=== PATIENT | female | born 1985 | race Asian ===

== ENCOUNTER 2020-05-27 05:20 | Inpatient (IN) | payer BC, SELFPAY ==
[~2020-05-27] VITALS: Ht 157.5 cm; Wt 60.8 kg
[2020-05-27] MEDS ORDERED: CITRIC ACID/SODIUM CITRATE 30 ML UDC PO ONE (05:30)
[2020-05-27] MEDS ORDERED: LR 1,000 ML IV SCH ×2 (05:30→07:45)
[2020-05-27] MEDS ORDERED: CEFAZOLIN 2 GM IVPB PREMIX 50 ML IV ONE ×2 (05:30→07:30)
[2020-05-27 05:47] LABS: BILIRUBIN,URINE NEGATIVE (NEGATIVE); BLOOD, URINE NEGATIVE (NEGATIVE); CLARITY/URINE CLEAR (CLEAR); COLOR,URINE YELLOW (YELLOW); GLUCOSE,URINE NEGATIVE (NEGATIVE); KETONES,URINE NEGATIVE (NEGATIVE); LEUKOCYTE ESTERASE ,URINE 2+ (NEGATIVE); NITRITE, URINE NEGATIVE (NEGATIVE); PROTEIN URINE NEGATIVE (NEGATIVE); UROBILINOGEN,URINE 0.2 (0.2-1.0)
[2020-05-27 05:55] LABS: BASOPHILS # (AUTO) 0.1 K/uL (0.0-0.2); BASOPHILS % (AUTO) 0.8 % (0.0-2.0); EOSINOPHILS # (AUTO) 0.1 K/uL (0.0-0.4); EOSINOPHILS % (AUTO) 1.8 % (0.0-4.0); HEMATOCRIT 38.1 % (36-48); HEMOGLOBIN 12.7 g/dL (12.0-16.0); LYMPHOCYTES # (AUTO) 2.2 K/uL (1.0-5.5); MEAN CORPUSCULAR HEMOGLOBIN 31 pg (27-31); MEAN CORPUSCULAR HGB CONC 33 % (32-36); MEAN CORPUSCULAR VOLUME 93 fL (79.0-98.0); MONOCYTES # (AUTO) 0.8 K/uL (0.0-1.0); NEUTROPHILS # (AUTO) 4.1 K/uL (1.8-7.7); NEUTROPHILS % (AUTO) 56.4 % (40.0-70.0); PLATELET COUNT (AUTO) 232 K/uL (130-430); RED CELL DISTRIBUTION WIDTH 13.4 % (9.0-15.0); WHITE BLOOD COUNT (AUTO) 7.2 K/uL (4.8-10.8)
[2020-05-27 06:24] VITALS: BP_SYST 113
[2020-05-27] MEDS ORDERED: PHENYLEPHRINE HCL 10 MG/ML VIAL (NEOSYNEPHRINE) IV ONE (07:30)
[2020-05-27] MEDS ORDERED: METOCLOPRAMIDE HCL 10 MG/2 ML VIAL IVP ONE (07:30)
[2020-05-27] MEDS ORDERED: LR 1,000 ML IV.SOLN IV ONE (07:30)
[2020-05-27] MEDS ORDERED: NS IRRIG SOLN 1000 ML IR ONE (07:30)
[2020-05-27] MEDS ORDERED: OXYTOCIN 10 UNIT/ML VIAL IV ONE (07:30)
[2020-05-27] MEDS ORDERED: ONDANSETRON HCL 4 MG/2 ML VIAL IVP ONE (07:30)
[2020-05-27] MEDS ORDERED: MORPHINE SULFATE 10MG/10ML PF AMP EP ONE (07:30)
[2020-05-27] MEDS ORDERED: NS 1000 ML IV.SOLN IV ONE (07:30)
[2020-05-27] MEDS ORDERED: OXYTOCIN/0.9 % SODIUM CHLORIDE 1,000 ML IV ONE (07:45)
[2020-05-27] MEDS ORDERED: MEASLES,MUMPS&RUBELLA VACC/PF 12500 UNIT/0.5 ML VIAL SUBQ PRN (07:45)
[2020-05-27] MEDS ORDERED: RHO(D) IMMUNE GLOBULIN/MALTOSE 1500 UNITS/1.3 ML (WINHRO) IM PRN (07:45)
[2020-05-27] MEDS ORDERED: SENNOSIDES/DOCUSATE SODIUM 1 TAB TABLET(SENOKOT-S) PO PRN (07:45)
[2020-05-27] MEDS ORDERED: ANUSOL 1 EA SUPP.RECT (PREPARATION H) RC PRN (07:45)
[2020-05-27] MEDS ORDERED: OXYCODONE/ACETAMINOPHEN 5-325 TABLET PO PRN (07:45)
[2020-05-27] MEDS ORDERED: LANOLIN 7 GM OINT. TP PRN (07:45)
[2020-05-27] MEDS ORDERED: TEMAZEPAM 15 MG CAPSULE PO PRN (07:45)
[2020-05-27] MEDS ORDERED: HYDROcodone/ACETAMIN 5-325 MG TAB (NORCO/ VICODIN) PO PRN (07:45)
[2020-05-27] MEDS ORDERED: BISACODYL 10 MG/SUPPOSITORY RC PRN (07:45)
[2020-05-27] MEDS ORDERED: DIPH-TET-PERTUS Vaccine 0.5 ML VIAL (ADACEL) I.M. PRN (07:45)
[2020-05-27] MEDS ORDERED: DIPHENHYDRAMINE INJ 50 MG/ML VIAL IM PRN (08:15)
[2020-05-27] MEDS ORDERED: NALOXONE HCL 0.4 MG/ML AMP (NARCAN) IVP PRN (08:15)
[2020-05-27] MEDS ORDERED: ONDANSETRON HCL 4 MG/2 ML VIAL IVP PRN (08:15)
[2020-05-27] MEDS ORDERED: MORPHINE SULFATE 10MG/10ML PF AMP SP SCH (08:15)
[2020-05-27] MEDS ORDERED: KETOROLAC TROMETHAMINE 60 MG/2 ML VIAL IM PRN (08:15)
[2020-05-27 08:41] VITALS: BP_SYST 102
[2020-05-27] MEDS: DOCUSATE SODIUM 100 MG CAPSULE PO PRN (20:19)
[2020-05-27] MEDS: SIMETHICONE 80 MG TAB.CHEW PO PRN (20:19)
[2020-05-28] MEDS: SIMETHICONE 80 MG TAB.CHEW PO PRN ×3 (02:21→21:15)
[2020-05-28] MEDS: DOCUSATE SODIUM 100 MG CAPSULE PO PRN ×2 (05:05→21:15)
[2020-05-28] MEDS: IBUPROFEN 600 MG TABLET PO SCH ×3 (05:05→18:04)
[2020-05-28 07:45] LABS: BASOPHILS # (AUTO) 0.1 K/uL (0.0-0.2); BASOPHILS % (AUTO) 0.7 % (0.0-2.0); EOSINOPHILS # (AUTO) 0.1 K/uL (0.0-0.4); EOSINOPHILS % (AUTO) 0.6 % (0.0-4.0); HEMATOCRIT 35.5 % (36-48); HEMOGLOBIN 11.8 g/dL (12.0-16.0); LYMPHOCYTES # (AUTO) 1.4 K/uL (1.0-5.5); LYMPHOCYTES % (AUTO) 14.9 % (20.5-51.5); MEAN CORPUSCULAR HEMOGLOBIN 31 pg (27-31); MEAN CORPUSCULAR HGB CONC 33 % (32-36); MEAN CORPUSCULAR VOLUME 93 fL (79.0-98.0); MONOCYTES # (AUTO) 0.6 K/uL (0.0-1.0); MONOCYTES % (AUTO) 6.3 % (1.7-9.3); NEUTROPHILS # (AUTO) 7.5 K/uL (1.8-7.7); NEUTROPHILS % (AUTO) 77.5 % (40.0-70.0); PLATELET COUNT (AUTO) 217 K/uL (130-430); RED BLOOD CELL COUNT(AUTO) 3.82 MIL/uL (4.2-6.2); RED CELL DISTRIBUTION WIDTH 13.6 % (9.0-15.0); WHITE BLOOD COUNT (AUTO) 9.7 K/uL (4.8-10.8)
[2020-05-28] MEDS: OXYCODONE/ACETAMINOPHEN 5-325 TABLET PO PRN ×3 (10:03→21:15)
[2020-05-29] MEDS: IBUPROFEN 600 MG TABLET PO SCH ×4 (00:03→18:34)
[2020-05-29] MEDS: OXYCODONE/ACETAMINOPHEN 5-325 TABLET PO PRN ×4 (03:20→21:06)
[2020-05-29] MEDS: DOCUSATE SODIUM 100 MG CAPSULE PO PRN ×2 (03:21→12:00)
[2020-05-29] MEDS: SIMETHICONE 80 MG TAB.CHEW PO PRN (03:21)
[2020-05-30] MEDS: IBUPROFEN 600 MG TABLET PO SCH ×2 (00:08→06:18)
[2020-05-30] MEDS: DOCUSATE SODIUM 100 MG CAPSULE PO PRN ×2 (00:09→06:19)
[2020-05-30] MEDS: OXYCODONE/ACETAMINOPHEN 5-325 TABLET PO PRN ×2 (00:09→03:05)
[2020-05-30] MEDS: SIMETHICONE 80 MG TAB.CHEW PO PRN ×2 (00:10→06:19)
== END 2020-05-30 11:57 | disposition home or self-care (01) | DRG 788 ==
LOC: SPU 05:20
PROVIDERS: ADMIT Obstetrics & Gynecology; ATTEND Obstetrics & Gynecology
PROC: 10D00Z1 Extraction of Products of Conception, Low, Open Approach (ICD-10-PCS; principal; 2020-05-27 07:30)
DX: O32.1XX0 Maternal care for breech presentation, not applicable or unspecified (principal); O69.81X0 Labor and delivery complicated by cord around neck, without compression, not applicable or unspecified; Z20.822 Contact with and (suspected) exposure to COVID-19; Z3A.39 39 weeks gestation of pregnancy; Z37.0 Single live birth
CPT/HCPCS: 36415; 81003; 85025; 86592; 86886; 86900; 86901; J0690; J1885; J2274; J2370; J2405; J2590; J2765; J7030; J7120; U0003